=== PATIENT | male | born 1975 | race Caucasian/White ===

== ENCOUNTER 2022-04-13 22:29 | Emergency (ER) | payer BC, SELFPAY ==
--- NOTE | ~2022-04-13 | CT_ITS ---
EXAMINATION: CT abdomen pelvis w con DATE: 04/14/2022 00:07 INDICATION: Left lower quadrant abdominal pain. TECHNIQUE: Computed tomography (CT) of the abdomen and pelvis was performed with 100 mL Omnipaque 350 intravenous contrast. Automated exposure control and iterative reconstruction technique were employe d. The dose-length product was 1393.49 mGy-cm. COMPARISON: Chest CT 06/23/2005 FINDINGS: The visualized portions of the lung bases demonstrate mild atelectasis. No pleural effusion . The heart size is normal. No pericardial effusion. There is a 7 mm low-attenuation lesion in the do me of the liver, likely benign. There is a 12 mm hypoattenuated mass with peripheral hyperenhancement in right hepatic lobe, probably benign. The gallbladder is contracted. The spleen, pancreas, adrenal glands, and kidneys are normal. There is fat stranding around an epiploic appendage of distal descen ding colon, consistent with epiploic appendagitis. There are no dilated loops of bowel. The appendix is normal. There are no pathologically enlarged lymph nodes. There is no free intraperitoneal fluid. There is a left inguinal hernia containing fat. There are chronic bilateral L5 pars defects. There is 4 mm anterolisthesis of L5 on S1. There is mild thoracolumbar spondylosis. IMPRESSION: 1. Epiploic appendagitis of distal descending colon. Reviewed, dictated and finalized at location A.
[2022-04-13 22:37] VITALS: BP 125/79; PULSE 73; RESP 16; TEMP 36.4; O2SAT 99
[2022-04-13 23:07] LABS: Basophils Absolute Auto 0.1 K/mm3 (0.0-0.1); Basophils Percent Auto 0.6 % (0.2-1.2); Eosinophils Absolute Auto 0.2 K/mm3 (0-0.3); Eosinophils Percent Auto 1.7 % (0-4.4); Hemoglobin 14.4 g/dL (14.0-18.0); Immature Granulocyte Absolute 0.03 K/mm3 (0.00-0.031); Immature Granulocyte Percent A 0.3 % (0-0.5); Lymphocytes Absolute Auto 3.39 K/mm3 (0.9-3.2); Mean Corpuscular Hemoglobin 27.9 pg (26-34); Mean Platelet Volume 8.7 fl (7.4-10.4); Monocytes Absolute Auto 0.8 K/mm3 (0.1-0.6); Monocytes Percent Auto 7.7 % (2.6-8.5); Neutrophils Absolute Auto 5.8 K/mm3 (1.3-6.7); Neutrophils Percent Auto 56.7 % (45.5-73.1); Platelet Count Result 324 k/mm3 (150-375); Red Blood Count 5.17 M/mm3 (4.6-6.20); Red Cell Distribution Width 12.8 % (11.5-14.5); White Blood Count 10.3 K/mm3 (4.5-10.0)
--- NOTE | 2022-04-13 23:09 | ED.GENADULT ---
HPI - General Adult General Chief complaint: Abdominal Pain Stated complaint: abdominal pain Time Seen by Provider: 04/13/22 22:59 History of Present Illness HPI narrative: Patient 46-year-old gentleman who presents the emergency department with chief complaint of abdominal pain. Patient reports that around noon today he started having pain in the left lower quadrant the patient reports the pain radiates to his left flank area. Patient states initially, sharp pain but then also feels like a fullness. Patient denies fever denies chills denies vomiting or diarrhea. Patient reports no prior abdominal surgeries reports no other significant past medical history patient reports the pain is worse with palpation of the left lower quadrant and is improved with rest. Related Data Allergies Allergy/AdvReac Type Severity Reaction Status Date / Time Penicillins Allergy Unknown Unknown Verified 04/13/22 23:15 Review of Systems Review of Systems: A 10 system review of systems was completed on the patient and is negative except for what is stated in the HPI. Nursing and ancillary documentation was reviewed. [facility] Family History Family History Grandparent Family history of heart disease in male family member before age 55 Social History Social History Smoking status: Former smoker Alcohol intake: current Exam Narrative: GENERAL: Well-appearing, well-nourished, and in no acute distress. HEAD: Normocephalic, atraumatic. EYES: PERRLA and EOMI. ENT: Nares clear, no rhinorrhea or epistaxis. Mucous membranes moist. NECK: Supple. CHEST: Clear to auscultation. No respiratory distress. HEART: Regular rate and rhythm. No murmur heard. Normal peripheral pulses. ABDOMEN: Soft, tenderness to palpation the left lower quadrant, nondistended, normal active bowel sounds. EXTREMITIES: Normal range of motion. No edema. SKIN: Warm, dry, no rash. NEURO: No focal deficits. Alert and oriented x3. PSYCH: Normal mood and affect. Course Course Emergency Course: CT scan shows no evidence of appendicitis but does show evidence of epiploic appendagitis Vital Signs Vital signs: Vital Signs Temperature 36.4 C L 04/13/22 22:37 Pulse Rate 73 04/13/22 22:37 Respiratory Rate 16 04/13/22 22:37 Blood Pressure 125/79 04/13/22 22:37 Pulse Oximetry 99 04/13/22 22:37 Oxygen Delivery Room Air 04/13/22 22:37 Temperature 36.4 C L 04/13/22 22:37 Pulse Rate 73 04/13/22 22:37 Respiratory Rate 16 04/13/22 22:37 Blood Pressure 125/79 04/13/22 22:37 Pulse Oximetry 99 04/13/22 22:37 Oxygen Delivery Room Air 04/13/22 22:37 Medical Decision Making Vital Signs Vital Signs: Vital Signs Temperature 36.4 C L 04/13/22 22:37 Pulse Rate 73 04/13/22 22:37 Respiratory Rate 16 04/13/22 22:37 Blood Pressure 125/79 04/13/22 22:37 Pulse Oximetry 99 04/13/22 22:37 Oxygen Delivery Room Air 04/13/22 22:37 Temperature 36.4 C L 04/13/22 22:37 Pulse Rate 73 04/13/22 22:37 Respiratory Rate 16 04/13/22 22:37 Blood Pressure 125/79 04/13/22 22:37 Pulse Oximetry 99 04/13/22 22:37 Oxygen Delivery Room Air 04/13/22 22:37 Lab Data Result diagrams: 04/13/22 22:56 04/13/22 22:56 Labs: Lab Results 04/13/22 04/13/22 04/13/22 Range/Units 22:56 22:56 23:27 WBC 10.3 H (4.5-10.0) K/mm3 RBC 5.17 (4.6-6.20) M/mm3 Hgb 14.4 (14.0-18.0) g/dL Hct 45.0 (42.0-52.0) % MCV 87.0 (80-100) fl MCH 27.9 (26-34) pg MCHC 32.0 (32-36) g/dl RDW 12.8 (11.5-14.5) % Plt Count 324 (150-375) k/mm3 MPV 8.7 (7.4-10.4) fl Immature Gran % (Auto) 0.3 (0-0.5) % Neut % (Auto) 56.7 (45.5-73.1) % Lymph % (Auto) 33.0 (18.3-44.2) % Door % (Auto) 7.7 (2.6-8.5) % Eos % (Auto) 1.7 (0-4.4) % Baso % (
[2022-04-13 23:18] LABS: Alanine Aminotransferase 37 U/L (6-50); Albumin Level 4.3 g/dL (3.5-5.1); Alkaline Phosphatase 68 U/L (38-126); Anion Gap 9 mmol/L (8-16); Aspartate Amino Transferase 27 U/L (17-59); Bilirubin,Total 0.4 mg/dL (0.2-1.3); Blood Urea Nitrogen 17 mg/dL (9-20); Calcium 9.3 mg/dL (8.4-10.2); Carbon Dioxide 30 mmol/L (22-30); Chloride 99 mmol/L (98-107); Estimated CRCL calculation 92 ml/min; Estimated Glomerular Filt Rate > 60; Glucose 107 mg/dL (65-110); Lipase 99 U/L (23-300); Potassium 3.9 mmol/L (3.4-5.0); Sodium 138 mmol/L (137-145)
[2022-04-13] MEDS: SODIUM CHLORIDE 0.9% IV 1,000 ML 999 ML IV CONT (23:23)
[2022-04-13] MEDS: ONDANSETRON INJ 4 MG/2 ML VIAL IV PUSH (23:24)
--- NOTE | 2022-04-13 23:38 | PC.NURSE ---
Transferred care to MEGAN Marie
[2022-04-13 23:42] LABS: Appearance Urine Clear (Clear); Bilirubin Urine Negative (Negative); Blood Urine 1+ (Negative); Color Urine Yellow (Yellow); Glucose Urine UA Negative (Negative); Ketones Urine Negative (Negative); Leukocyte Esterase Ur Negative LEU/UL (Negative); Nitrate Urine Negative (Negative); Protein Urine Trace mg/dL (Negative); Specific Grav Ur >= 1.030 (1.001-1.035); Urobilinogen Urine 0.2 mg/dL (<2.0)
[2022-04-13 23:47] LABS: Mucus Urine Rare /lpf; WBC Urine 0-3 /hpf
[2022-04-13 23:48] LABS: Add Urine Microscopic? YES
[2022-04-14] MEDS: HYDROcodone/acetaminophen (*CRX) 5-325 MG TABLET 1 TAB PO (00:38)
[2022-04-14] MEDS: KETOROLAC 30 MG/ML VIAL (*BKC) IV PUSH (00:38)
[2022-04-14 01:28] VITALS: BP 135/88; PULSE 62; RESP 16; O2SAT 98
== END 2022-04-14 01:31 | disposition home or self-care (01) ==
PROVIDERS: Emergency Provider Emergency Medicine; PCP Physician Assistant
DX: K63.89 Other specified diseases of intestine (principal); Z87.891 Personal history of nicotine dependence
CPT/HCPCS: 36415; 74177; 80053; 81001; 83690; 85025; 96361; 96374; 96375; 99284; A9270; J1885; J2405; J7030; Q9967

== ENCOUNTER 2024-09-29 01:14 | Day surgery (SDC) | payer OTHER, SELFPAY ==
[2024-09-15 13:08] VITALS: BMI 35.2
--- OUTSIDE RECORDS SUMMARY | 2024-09-29 01:16 | XMS_ITS | Referral Summary ---
Author Organization [facility] Address [address] [place] [address] Care Team Providers Care Bicycle Ii Assembler Name Role Phone [facility], Dejuan Covarrubias Unavailable Leobardo Khan MD Primary Care Provider Allergies Active Allergy Reactions Criticality Noted Date Comments Penicillins Rash Medium 10/08/2022 Medications omega 8-gre-zsh-fish oil (Fish OiL) 100-160-1,000 mg capsule Fish Oil takes daily 07/31/2020 Active Active Problems Problem Noted Date Diagnosed Date SHARDA (obstructive sleep apnea) 02/09/2024 Assessment & Plan (03/17/2024 11:34 AM CDT): The patient continues to have morning headaches and chest soreness. He did have almost 5 minutes with saturations less than or equal 88%. I have recommended a CPAP titration study starting at 11 cm water pressure he will follow up here in 2 months Assessment & Plan (02/09/2024 11:46 AM CDT): The patient is compliant with the auto titrating CPAP unit with a range of 10-12 cm water pressure. He is waking up after about 4 hours and has difficulty getting back to sleep in his having headaches and chest pressure when he wakes up. I will order an overnight pulse oximetry recording on CPAP and he will follow up here in 1 month. We did discuss the inspire device. Otitis media 10/08/2022 Annual physical exam 10/08/2022 Assessment & Plan (03/30/2024 11:35 AM CDT): A(n) yearly well visit to establish care has been performed today. Aj Hernandez is not up to date on screening tests. He is in need of Prostate screening, hep c, B, Colon cancer screening, and Cholesterol screening. He is not up to date on needed preventative vaccinations; He is in need of Tdap/Td. We discussed healthy lifestyle habits, educational material has been given. Medications reviewed, changes documented as per the medical record and discussed with patient along with risks vs benefits. Specific topics reviewed: drugs, ETOH, and tobacco, importance of regular dental care, importance of regular exercise, importance of varied diet, limit TV, media violence, minimize junk food, and seat belts. Return in 1 year COVID-19 09/18/2022 Immunizations Name Administration Dates Next Due Influenza, Quadrivalent, Spl it, Preservative Free, Intramuscular 06/05/2023 Influenza, Unspecified 07/11/2022 Social History Tobacco Use Types Packs/Day Years Used Date Smoking Tobacco: Former Cigarettes 0.5 18 0 08/17/1994 - 08/17/2003 Cigars Smokeless Tobacco: Former Snuff, Chew Quit: 08/17/2013 Tobacco Cessation:Counseling Given: Not Answered AUDIT-C Answer Date Recorded Q1: How often do you have a drink containing alc ohol? Monthly or less 03/30/2024 Q2: How many drinks containi ng alcohol do you have on a typical day when you are drinking? 1 or 2 03/30/2024 Q3: How often do you have si x or more drinks on one occasion? 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 Gender Identity Not on file Sexual Orientation Not on file Last Filed Vital Signs Vital Sign Reading Time Taken Comments Blood Pressure 130/80 03/30/2024 11:16 AM CDT Pulse 62 03/30/2024 11:16 AM CDT Temperature 36.2 C (97.1 F) 03/30/2024 11:16 AM CDT Respiratory Rate 18 03/30/2024 11:16 AM CDT Oxygen Saturation 99% 03/30/2024 11:16 AM CDT Inhaled Oxygen Concentration - - Weight 104.8 kg (231 lb) 03/30/2024 11:16 AM CDT Height 170.2 cm (5' 7 ) 03/30/2024 11:16 AM CDT Body Mass Index 36.18 03/30/2024 11:16 AM CDT Plan of Treatment Not on file Procedures Procedure Name Priority Date/Time Associated Diagnosis Comments HEPATITIS C ANTIBODY Routine 03/30/2024 10:30 AM CDT Need for hepatitis C screening test PSA SCREEN Routine 03/30/2024 10:30 AM CDT Screening for prostate cancer from Last 3 Months or Most Recently Relevant to Health Maintenance Results * PSA screen (03/30/2024 10:30 AM CDT) PSA-Total 0.51 ng/mL Comment: Interpretive Data AGE SEX REFERENCE INTERVAL 0 minutes-150 years Female None 0 minutes-49 years Male None 50-59 years Male 0-3.90 60-69 years Male 0-5.40 70-79 years Male 0-6.20 80-150 years Male 0-6.20 The Alma PSA Total assay procedure was used. Results from different manufacturers or methods may not be comparable. Serial testing should be performed using the same method. Current interpretive data last revised 21. Blood 03/30/2024 10:3 0 AM CDT 03/30/2024 3:10 PM CDT us Leobardo Khan MD LAB BLOOD ORDERABLES Final Result [address] [address] [place] [address] * Hepatitis C antibody Blood (03/30/2024 10:30 AM CDT) Hep C Ab Nonreactive Nonreactive Comment: Interpretive Data Nonreactive: Antibodies to HCV not detected. Does NOT exclude the possibility of recent exposure to HCV. Equivocal: Equivocal for HCV antibodies. Supplemental molecular testing will be automatically performed to determine infection status in accordance with current CDC screening recommendations. Reactive: Positive for HCV antibodies. This may represent current or past HCV infection. Supplemental molecular testing will be automatically performed to determine current infection status in accordance with current CDC screening recommendations. Interpretive data was last revised on 2019. Blood 03/30/2024 10:3 0 AM CDT 03/30/2024 3:10 PM CDT Leobardo Khan MD LAB MICROBIOLOGY - GENERAL ORDERABLES Edited Result - Final Performing Organization Address City/State/ZIP Co ok Phone Number [facility] [address] [place] [address] from Last 3 Months or Most Recently Relevant to Health Maintenance Insurance [facility] PPO Care Teams Bicycle Ii Assembler Relationship Specialty Start Date End Date Leobardo Khan MD [address] [facility] [address] [place] [address] PCP - General Family Medicine 03/30/24 [facility] [address] [place] [address] Referring Physician Genetics 12/29/23
--- OUTSIDE RECORDS SUMMARY | 2024-09-29 01:16 | XMS_ITS | Clinical Summary ---
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 Gender Identity Not on file Sexual Orientation Not on file Plan of Treatment Health Maintenance Due Date Last Done Comments Colorectal Cancer Screening Colonoscopy (10 Years) 1977 Annual Physical 1980 Hepatitis C 1995 DTaP, Tdap and Td Vaccines ( 1 - Tdap) 1996 Hepatitis B Vaccines (1 of 3 - 19+ 3-dose series) 1996 COVID-19 Vaccine (2023-2 5 season) 2024 02/12/2021, 01/22/2021 Influenza Adult (#1) 2024 07/11/2022 Meningococcal B Vaccine Aged Out No l onger eligible based on patient's age to complete this topic Meningococcal Vaccine Aged Out No regi roselia eligible based on patient's age to complete this topic Pneumococcal Vaccine: Pediatrics (0 to 5 Years) and At-Risk Patients (6 to 64 Years) Aged Out No longer eligible b ased on patient's age to complete this topic RSV Immunizations Under 20 Months Aged Out No longer eligible b ased on patient's age to complete this topic Insurance [employer] Care Teams Story Editor Relationship Specialty Start Date End Date Shaggy Rudd MD [address] [address] PCP - General FAMILY PRACTICE 10/13/22
--- OUTSIDE RECORDS SUMMARY | 2024-09-29 01:16 | XMS_ITS | Clinical Summary ---
Author Organization [facility] Address [address] [place] [address] Care Team Providers Care Chrome Cleaner Name Role Phone [facility], Dejuan Covarrubias Unavailable Leobardo Khan MD Primary Care Provider Allergies Active Allergy Reactions Criticality Noted Date Comments Penicillins Rash Medium 10/08/2022 Medications omega 6-xrn-kbk-fish oil (Fish OiL) 100-160-1,000 mg capsule Fish [...] Preservative Free, Intramuscular 06/05/2023 Influenza, Unspecified 07/11/2022 Medical History Medical History Date Comments Back injury Hyperlipidemia Costochondritis Carpal tunnel syndrome Arthritis Family History Medical History Relation Name Comments No Known Problems Brother 1 No Known Problems Brother 2 No Known Problems Brother 3 Prostate cancer Father Tourette syndrome Father JENNIFER disease Mother Heart murmur Sister Relation Name Status Comments Brother 1 Alive Brother 2 Alive Brother 3 Alive Father Alive Mother Alive Sister Alive Social History Tobacco Use Types Packs/Day Years [...] on file 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 Gender Identity Not on file Sexual Orientation Not on file Obstetrics History Last Filed Vital Signs Vital Sign Reading [...] 03/30/2024 11:16 AM CDT Plan of Treatment Health Maintenance Due Date Last Done Comments Colon Cancer Screening-Colonoscopy 1977 DTaP/Tdap/Td Vaccine (1 - Tdap) 1988 Covid-19 Vaccine (3 - 2023-2 5 season) 2024 02/12/2021, 01/22/2021 Influenza Vaccine (#1) 2024 , 07/11/2022 Depression Screening 03/30/2025 03/30/2024, 10/08/2022 Regular Well Visit/Exam 18-64 03/30/2025, 10/08/2022 Prostate Cancer Screening-PSA 03/30/2026 03/30/2024 Hepatitis B Screening Completed 03/30/2024 Hepatitis C Screening Completed 03/30/2024 Pneumococcal vaccine <65 Aged Out No longer eligible based on patient's age to complete this topic Procedures Procedure Name Priority Date/Time Associated Diagnosis [...] 3:10 PM CDT Leobardo Khan MD LAB BLOOD ORDERABLES Final Result Performing Organization Address [facility] de Phone Number [facility]IM[facility] [place] [address] * Hepatitis C antibody Blood [...] Edited Result - Final Performing Organization Address City/[facility] Co de Phone Number [facility] [address] [place] [address] from Last 3 Months or Most Recently Relevant to Health Maintenance Insurance [facility] PPO Care Teams Chrome Cleaner Relationship Specialty Start Date End Date Leobardo Khan MD [address] [facility] [address] [place] [address] PCP - General Family Medicine 03/30/24 [facility] [address] [place] [address] Referring Physician Genetics 12/29/23
[2024-09-29 08:35] VITALS: BP 117/76; PULSE 97; RESP 16; TEMP 35.7; O2SAT 98
--- NOTE | 2024-09-29 08:39 | P.PNAN_ITS ---
Anes - Initial Pre Proc Eval Procedure: Operation Date: 09/29/24 09:30 Proposed Procedures p Screening Colonoscopy - Jonah Davis MD Date/Time: 09/29/24 08:39 Surgeon: Jonah Davis MD Pre Op Diagnosis: screening colon Patient Data Age: 49 Gender: M Height: 1.7 m Weight: 106.6 kg Last Vital Signs Temp 35.7 C L 09/29/24 08:35 Pulse 97 09/29/24 08:35 Resp 16 09/29/24 08:35 BP 117/76 09/29/24 08:35 Pulse Ox 98 09/29/24 08:35 O2 Del Method Room Air 09/29/24 08:35 Allergies Allergy/AdvReac Type Severity Reaction Status Date / Time Penicillins Allergy Unknown Unknown Verified 09/29/24 08:32 Home Medications ?Medication ?Instructions ?Recorded ?Confirmed ?Type ibuprofen 800 mg tablet 800 mg PO TID PRN pain #30 tabs 04/14/22 09/15/24 Rx acetaminophen 500 mg tablet 500 mg PO Q4H PRN pain 09/29/24 09/29/24 History (Tylenol Extra Strength) Patient hx anesthesia problems: none Family hx anesthesia problems: none Results Review: All pre-operative results and documents have been reviewed as part of the pre- operative evaluation. [facility] Past Medical History Medical History (Updated 09/29/24 @ 08:39 by Danny Ward MD) Obesity Family History Family History Grandparent Family history of heart disease in male family member before age 55 Social History Social History Smoking packs per day: 0.5 Smoking cigarettes per day: 10.0 Years smoked: 10 Smoking pack-years: 5.00 Smoking status: Former smoker Tobacco type: cigarettes Alcohol intake: current Drinks per week: 2 Alcohol use details: rarely Substance use: never Substance use type: does not use Living arrangements: with family Spiritual care concerns: No Anes - Eval Final PreProcedure Day of Procedure 09/29/24 08:39 Patient weight: obese Heart: regular rate and rhythm Lungs: clear to auscultation Airway: Mallampati scale class II Neurological: alert and oriented Last oral intake: >/= 8 hours ASA classification: II Emergent: no Anesthetic plan: proceed Anesthesia type and monitoring: general GIVS and standard monitoring Results Review: All pre-operative results and documents have been reviewed as part of the pre- operative evaluation. Informed Consent: The patient's anesthetic plan and its attendant risks and benefits were discussed with the patient/family/POA. Questions were solicited and answers provided to the satisfaction of the patient/family/POA.
[2024-09-29] MEDS: LACTATED RINGERS 1,000 ML 150 ML IV CONT (08:43)
--- NOTE | 2024-09-29 09:32 | PM.HPGS ---
History of Present Illness History of Present Illness Consent: Risks, benefits, and alternatives have been discussed and questions answered. Patient agrees to proceed with procedure. Chief complaint: screening colon Narrative: Aj Farley is a 49 year old male here for first screening colonoscopy Review of Systems Review of Systems: All systems reviewed & are unremarkable except as noted in HPI and below PMFSH Past Medical History Medical History (Updated 09/29/24 @ 09:33 by Jonah Davis MD) Colon cancer screening Obesity Family History Family History Grandparent Family history of heart disease in male family member before age 55 Social History Social History Smoking packs per day: 0.5 Smoking cigarettes per day: 10.0 Years smoked: 10 Smoking pack-years: 5.00 Smoking status: Former smoker Tobacco type: cigarettes Alcohol intake: current Drinks per week: 2 Alcohol use details: rarely Substance use: never Substance use type: does not use Living arrangements: with family Spiritual care concerns: No Meds Home Medications and Allergies Home Medications ?Medication ?Instructions ?Recorded ?Confirmed ?Type ibuprofen 800 mg tablet 800 mg PO TID PRN pain #30 tabs 04/14/22 09/15/24 Rx acetaminophen 500 mg tablet 500 mg PO Q4H PRN pain 09/29/24 09/29/24 History (Tylenol Extra Strength) Allergies Allergy/AdvReac Type Severity Reaction Status Date / Time Penicillins Allergy Unknown Unknown Verified 09/29/24 08:32 Vital Signs Vital Signs - 24 hr 09/29/24 08:35 Temperature 96.3 F L Pulse Rate 97 Respiratory Rate 16 Blood Pressure 117/76 Pulse Oximetry 98 Oxygen Delivery Room Air Exam Const: General: comfortable and no acute distress HENMT: Face/Nose/Sinus: Normal nares present Eyes: General: appearance normal, both eyes and all related structures Neck: Neck: no JVD Resp: Auscultation: clear to auscultation bilaterally Cardio: Rate: regular rate Rhythm: regular rhythm GI: Inspection: non-distended GI Palp: Yes Soft to palpation Skin: General skin exam: normal color Neuro: General: gait normal Speech: normal speech Extrem: General: normal to inspection Psych: Mental Status: mental status grossly normal Assessment and Plan Assessment and plan (1) Colon cancer screening: Code(s): Z12.11 - Encounter for screening for malignant neoplasm of colon Status: Acute Assessment and Plan: colonoscopy
[2024-09-29 09:50] VITALS: BP 118/84; PULSE 88; RESP 23; O2SAT 96
[2024-09-29 10:00] VITALS: BP 117/81; PULSE 80; RESP 30; O2SAT 95
[2024-09-29 10:10] VITALS: BP 107/70; PULSE 74; RESP 19; O2SAT 99
== END 2024-09-29 10:20 | disposition home or self-care (01) ==
PROVIDERS: PCP Family Medicine; Referring Provider Family Medicine; Visit Provider Internal Medicine Gastroenterology
PROC: 0DJD8ZZ Inspection of Lower Intestinal Tract, Via Natural or Artificial Opening Endoscopic (ICD-10-PCS; CPT 45378; principal; 2024-09-29 09:30)
DX: Z12.11 Encounter for screening for malignant neoplasm of colon (principal); D12.0 Benign neoplasm of cecum; E66.9 Obesity, unspecified; Z68.36 Body mass index [BMI] 36.0-36.9, adult; Z79.1 Long term (current) use of non-steroidal anti-inflammatories (NSAID); Z87.891 Personal history of nicotine dependence; Z82.49 Family history of ischemic heart disease and other diseases of the circulatory system
CPT/HCPCS: 45385; 88305; J2003; J2704; J7120